=== PATIENT | male | born 2000 | race Caucasian/White ===

== ENCOUNTER 2022-06-06 15:32 | Emergency (ER) | payer SELFPAY ==
[~2022-06-06] VITALS: Ht 172.7 cm; Wt 80.0 kg
[2022-06-06 15:44] VITALS: BP 159/90
[2022-06-06 20:25] LABS: BASOPHILS % 0.6 % (0.0-2.0); EOSINOPHILS % 0.4 % (0.0-5.0); HEMATOCRIT. 46.5 % (42.0-52.0); LYMPHOCYTES % 15.4 % (20.0-50.0); MEAN CORPUSCULAR HEMOGLOBIN 30.2 pg (28.0-32.0); MEAN CORPUSCULAR VOLUME 88.2 fL (80.0-94.0); MEAN PLATELET VOLUME 9.3 fl (7.4-10.4); MONOCYTES % 7.2 % (2.0-8.0); NEUTROPHILS % 76.4 % (40.0-76.0); PLATELET 337 x1000/uL (130-400); RED BLOOD CELL COUNT 5.27 mill/uL (4.7-6.1); RED CELL DISTRIBUTION WIDTH 13.5 % (11.6-14.6)
[2022-06-06 20:53] LABS: CHLORIDE 103 mEq/L (98-107)
[2022-06-06] MEDS ORDERED: FAMO-135 MT (23:25)
== END 2022-06-06 23:48 | disposition home or self-care (01) ==
LOC: ER 15:32
DX: R10.9 Unspecified abdominal pain (principal)
CPT/HCPCS: 36415; 71045; 80053; 84484; 85025; 93005; 99285